=== PATIENT | female | born 1965 | race Caucasian/White ===

== ENCOUNTER 2017-09-11 20:12 | Emergency (ER) | payer OTHER ==
[~2017-09-11] VITALS: Ht 160 cm; Wt 73.7 kg
[~2017-09-11 20:12] MED LIST: COMBIVENT RESPIM4 GM IH; NORCO 5/3251 TABLET PO
[2017-09-11 21:33] LABS: HEMATOCRIT 37.3 % (36.0-46.0); MCH 33.2 PG (29.0-34.0); MCV 97.6 FL (83-99); MEAN PLAT.VOLUME 10.5 uM^3 (9.5-12.4); PLATELET COUNT 218 K/uL (156-360); RBC DIS.WIDTH-CV 12.2 % (11.8-14.6); RED BLOOD COUNT 3.82 M/uL (3.80-5.20)
[2017-09-11 21:41] LABS: CHLORIDE 102 mEq/L (99-109); POTASSIUM 3.8 mEq/L (3.7-5.4); SODIUM 137 mEq/L (136-147)
[2017-09-11 21:43] LABS: GLUCOSE 94 mg/dL (70-99)
[2017-09-11 21:44] LABS: ANION GAP 9 MEQ/L (2-14)
[2017-09-11 21:45] LABS: TOTAL BILIRUBIN 0.3 mg/dL (0.0-1.0)
[2017-09-11 21:47] LABS: ALKALINE PHOSPHATASE 83 IU/L (3-129); D-DIMER ELISA < 150.00 ng/mLDDU (<230); GFR ESTIMATE (CALCULATED) > 59 mL/min/
[2017-09-11 21:48] LABS: UREA NITROGEN (BUN) 15 mg/dL (9-23)
[2017-09-11 22:26] LABS: ADD MIUA? YES; BILIRUBIN NEGATIVE; BLOOD SMALL; COLOR YELLOW ((YELLOW)); GLUCOSE (STRIP) NEGATIVE; KETONES NEGATIVE; LEUKOCYTES TRACE; NITRITE NEGATIVE; PROTEIN (STRIP) NEGATIVE; SPECIFIC GRAVITY 1.013 (1.000-1.030); UROBILINOGEN 0.2 MG/DL (0.2-1.0)
[2017-09-11 22:27] LABS: INTERNAL CONTROL VALID? YES
[2017-09-11 22:38] LABS: BACTERIA 1+ /HPF; EPITHELIAL CELLS 1+ /HPF; MUCUS TRACE /LPF; RED BLOOD CELLS 0-5 /HPF (0-5); UCUL ADDED? NO; WHITE BLOOD CELLS 0-5 /HPF (0-5)
[2017-09-11 23:03] LABS: TROP-I INTERPRETATION NEGATIVE; TROPONIN-I < 0.01 ng/mL (0.0-0.30)
[2017-09-11] MEDS ORDERED: MOTRIN800 MG PO (23:07)
[2017-09-11 23:19] VITALS: BP 105/86
== END 2017-09-11 23:30 | disposition home or self-care (01) ==
LOC: EME 20:12
PROVIDERS: Emergency Medicine
DX: B34.9 Viral infection, unspecified (principal); R07.9 Chest pain, unspecified; F17.210 Nicotine dependence, cigarettes, uncomplicated
CPT/HCPCS: 71020; 80053; 81003; 84484; 84703; 85027; 85379; 87502; 93005; 99281; 99284; J7030